=== PATIENT | female | born 1980 | race Caucasian/White ===

== ENCOUNTER 2018-12-17 00:06 | Emergency (ER) | payer OTHER ==
[2018-12-17] MEDS ORDERED: TORADOL IV ONE (00:30)
[2018-12-17] MEDS ORDERED: NACL 0.9% 1000 ML 1,000 ML IV ONE (00:30)
[2018-12-17] MEDS ORDERED: ZOFRAN IV ONE (00:30)
--- NOTE | 2018-12-17 00:38 | Emergency Department Report ---
ED Abdominal Pain HPI - General Chief Complaint: Abdominal Pain Stated Complaint: VOMITING Time Seen by Provider: 12/17/18 00:22 Source: patient Mode of arrival: Wheelchair Limitations: No Limitations - History of Present Illness Initial Comments: 38-year-old female presents to ED with abdominal pain, nausea, vomiting. The patient states her symptoms began earlier in the evening after eating a cauliflower casserole. Patient denies fever, diarrhea. Pain is mainly located in the epigastric region, nonradiating. MD Complaint: abdominal pain -: This evening Location: epigastric Radiation: none Migration to: no migration Severity: moderate Severity scale (0 -10): 7 Quality: sharp Consistency: intermittent Improves With: nothing Worsens With: nothing Context: possible food poisoning Associated Symptoms: nausea, vomiting. denies: diarrhea, fever - Related Data Home Medications Medication Instructions Recorded Confirmed Last Taken Ethinyl Estradiol/Drospirenone 1 tab PO QDAY 08/13/13 08/13/13 Unknown [[place]af[place] 28] Previous Rx's Medication Instructions Recorded Last Taken Type Dicyclomine [Bentyl] 20 mg PO QID PRN #20 tablet 12/17/18 Unknown Rx Ondansetron [Zofran Odt] 4 mg PO Q8HR PRN #20 tab.rapdis 12/17/18 Unknown Rx Sulfamethoxazole/Trimethoprim 1 each PO BID #6 tablet 12/17/18 Unknown Rx [Bactrim DS TAB] Allergies Allergy/AdvReac Type Severity Reaction Status Date / Time Latex, Natural Rubber Allergy Rash Verified 08/13/13 09:27 morphine Allergy Rash Verified 08/13/13 09:27 shellfish derived Allergy Hives Verified 12/17/18 02:30 ED Review of Systems ROS: Stated complaint: VOMITING Other details as noted in HPI Comment: All other systems reviewed and negative Constitutional: denies: chills, fever Gastrointestinal: abdominal pain, nausea, vomiting. denies: diarrhea ED Past Medical Hx - Past Medical History Previous Medical History?: Yes Additional medical history: Hypothyroid - Surgical History Past Surgical History?: No - Social History Smoking Status: Never Smoker Substance Use Type: None - Medications Home Medications: Home Medications Medication Instructions Recorded Confirmed Last Taken Type Ethinyl Estradiol/Drospirenone 1 tab PO QDAY 08/13/13 08/13/13 Unknown History [Daf[place] 28] Dicyclomine [Bentyl] 20 mg PO QID PRN #20 tablet 12/17/18 Unknown Rx Ondansetron [Zofran Odt] 4 mg PO Q8HR PRN #20 tab.rapdis 12/17/18 Unknown Rx Sulfamethoxazole/Trimethoprim 1 each PO BID #6 tablet 12/17/18 Unknown Rx [Bactrim DS TAB] ED Physical Exam - General Limitations: No Limitations General appearance: alert, other (appears uncomfortable, actively retching) - Head Head exam: Present: atraumatic, normocephalic - Eye Eye exam: Present: normal appearance - ENT ENT exam: Present: mucous membranes moist - Neck Neck exam: Present: normal inspection - Respiratory Respiratory exam: Present: normal lung sounds bilaterally. Absent: respiratory distress - Cardiovascular Cardiovascular Exam: Present: normal rhythm, tachycardia - GI/Abdominal GI/Abdominal exam: Present: soft, tenderness (moderate epigastric). Absent: distended - Extremities Exam Extremities exam: Present: normal inspection - Neurological Exam Neurological exam: Present: alert, oriented X3 - Psychiatric Psychiatric exam: Present: normal affect, normal mood - Skin Skin exam: Present: warm, dry, intact, normal color ED Course Vital Signs 12/17/18 12/17/18 12/17/18 00:09 00:35 00:41 Temperature 97.3 F L 98.1 F Pulse Rate 112 H 105 H Respiratory 22 26 H 26 H Rate Blood Pressure 157/102 Blood Pressure 141/96 [Left] O2 Sat by Pulse 100 100 Oximetry 12/17/18 12/17/18 12/17/18 00:46 01:00 01:11 Temperature Pulse Rate 93 H 83 Respiratory 18 Rate Blood Pressure 141/96 134/80 Blood Pressure [Left] O2 Sat by Pulse 100 100 Oximetry 12/17/18 12/17/18 12/17/18 01:16 01:30 01:46 Temperature Pulse Rate 90 83 96 H Respiratory 14 13 13 Rate Blood Pressure 141/96 124/83 124/83 Blood Pressure [Left] O2 Sat by Pulse 100 100 100 Oximetry 12/17/18 12/17/18 02:16 02:30 Temperature Pulse Rate 93 H 93 H Respiratory 19 16 Rate Blood Pressure 137/80 131/77 Blood Pressure [Left] O2 Sat by Pulse 98 98 Oximetry - Reevaluation(s) Reevaluation #1: 12/17/18 02:22 Patient feeling much better at this time. Sitting up in stretcher, talking w/ family. Awaiting CT. ED Medical Decision Making - Lab Data Result diagrams: 12/17/18 00:15 12/17/18 00:15 - Radiology Data Radiology results: report reviewed, image reviewed - Medical Decision Making 38-year-old female with likely gastritis after eating cauliflower casserole. WBCs elevated at 20, however CT negative. Patient felt much better at this time, IV fluids, Zofran, Bentyl. Return precautions given. Outpatient follow- up advised. - Differential Diagnosis pancreatitis, bowel obstruction, gastritis Critical care attestation.: If time is entered above; I have spent that time in minutes in the direct care of this critically ill patient, excluding procedure time. ED Disposition Clinical Impression: Gastritis, UTI (urinary tract infection) Disposition: TO HOME OR SELFCARE Is pt being admited?: No Condition: Stable Instructions: Gastritis (ED), Urinary Tract Infection in Women (ED), Abdominal Pain (ED) Prescriptions: Dicyclomine [Bentyl] 20 mg PO QID PRN #20 tablet PRN Reason: abdominal pain Ondansetron [Zofran Odt] 4 mg PO Q8HR PRN #20 tab.rapdis PRN Reason: Vomiting Sulfamethoxazole/Trimethoprim [Bactrim DS TAB] 1 each PO BID #6 tablet Referrals: RACHEL BARAHONA MD [Primary Care Provider] - 3-5 Days PRIMARY CARE, [Referring] - 3-5 Days Time of Disposition: 03:26
[2018-12-17 00:44] LABS: Basophils # (Auto) 0.1 K/mm3 (0.0-0.1); Basophils % (Auto) 0.4 % (0.0-1.8); Eosinophils # (Auto) 0.1 K/mm3 (0.0-0.4); Eosinophils % (Auto) 0.4 % (0.0-4.3); Hematocrit 44.9 % (30.3-42.9); Lymphocytes # (Auto) 2.5 K/mm3 (1.2-5.4); Lymphocytes % (Auto) 12.6 % (13.4-35.0); Mean Corpuscular HGB Conc 33 % (30-34); Mean Corpuscular Volume 84 fl (79-97); Monocytes # (Auto) 0.7 K/mm3 (0.0-0.8); Monocytes % (Auto) 3.3 % (0.0-7.3); Platelet Count 390 K/mm3 (140-440); Red Blood Count 5.35 M/mm3 (3.65-5.03); Red Cell Distribution Width 13.3 % (13.2-15.2)
[2018-12-17 02:00] LABS: Alanine Aminotransferase 17 units/L (7-56); Albumin 4.3 g/dL (3.9-5); BUN/Creatinine Ratio 13; Blood Urea Nitrogen 9 mg/dL (7-17); Calcium 9.8 mg/dL (8.4-10.2); Hemolysis Index 32
[2018-12-17 02:28] LABS: Bilirubin,Urine NEG (Negative); Blood,Urine LG (Negative); Color,Urine Yellow (Yellow); Hyaline Casts,Urine 6 /LPF; Mucus,Urine 3+ /HPF; Urobilinogen,Urine < 2.0 mg/dL (<2.0)
--- NOTE | 2018-12-17 03:17 | Cat Scan Report ---
PROCEDURE: CT ABDOMEN PELVIS WO CON TECHNIQUE: Routine axial imaging was obtained of the abdomen and pelvis without oral or IV contrast. Sagittal and coronal reconstructions were reviewed. HISTORY: abd pain COMPARISONS: None FINDINGS: The lung bases are clear. Pleural fluid is not seen. The liver, gallbladder, biliary tree, pancreas, spleen, and adrenal glands appear normal. The kidneys show no evidence of stones or hydronephrosis. There is a 1.5 cm cortical cyst medially in the right kidney. The bowel loops are normal in caliber and course. The appendix appears normal. There is no ev idence of adenopathy. In the pelvis the uterus and bladder appear normal. A small amount of free flui d in the cul-de-sac. The skull structures reveal a grade 2 anterolisthesis of L5 over S1 with severe disc degeneration pars defects. IMPRESSION: No acute process in the abdomen and pelvis. Normal appendix. Small benign cortical cyst in the right kidney. 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 Small amount of free fluid in the cul-de-sac. . This document is electronically signed by Leon Cuello MD., December 17 2018 03:14:43 AM ET
[2018-12-17 03:23] VITALS: BP 131/77
== END 2018-12-17 03:41 | disposition home or self-care (01) ==
LOC: EEVIPCON 00:06 → ED 00:06
DX: K29.70 Gastritis, unspecified, without bleeding (principal); N39.0 Urinary tract infection, site not specified; Z91.013 Allergy to seafood; Z91.040 Latex allergy status; Z88.6 Allergy status to analgesic agent
CPT/HCPCS: 36415; 74176; 80053; 81001; 83690; 84703; 85025; 96361; 96374; 96375; 99284; J1885; J2405; J7030